=== PATIENT | female | born 1990 | race Hispanic/Latino ===

== ENCOUNTER 2018-05-06 22:20 | Emergency (ER) | payer SELFPAY ==
[~2018-05-06] VITALS: Ht 157.5 cm; Wt 154.2 kg
== END 2018-05-07 00:51 | disposition home or self-care (01) ==
LOC: ER 22:20
DX: R10.2 Pelvic and perineal pain (principal); N89.8 Other specified noninflammatory disorders of vagina
CPT/HCPCS: 99283

== ENCOUNTER 2024-10-25 19:22 | Inpatient (IN) | payer SELFPAY ==
[~2024-10-25] VITALS: Ht 157.5 cm; Wt 142.9 kg
[~2024-10-25 19:22] MED LIST: DOXYCYCLINE HY100 MG PO
[2024-10-25] MEDS ORDERED: IOPAMIDOL 370 MG/ML 100 ML INFUS..BTL INJ ONE (20:43)
[2024-10-25] MEDS: ONDANSETRON HCL INJ 2MG/ML 2ML 2 MG/ML VIAL IV STA (20:53)
[2024-10-25] MEDS: SODIUM CHLORIDE 0.9% 1000ML 1,000 ML IV ONE (20:53)
[2024-10-25] MEDS: FAMOTIDINE 20 MG/2 ML VIAL IV STA (20:53)
[2024-10-25] MEDS: KETOROLAC TROMETHAMINE 30 MG/ML VIAL IV STA (21:34)
[2024-10-26] VITALS (11 sets, daily range): BP systolic 117–159; BP diastolic 56–95; PULSE 50–81; RESP 18–20; TEMP 98.5–99.1; O2SAT 98–100
[2024-10-26] MEDS ORDERED: HYDROMORPHONE 1MG/1ML INJ IV PRN (00:45)
[2024-10-26] MEDS: SODIUM CHLORIDE 0.9% 1000ML 1,000 ML IV SCH (01:22)
[2024-10-26 08:15] LABS: BASOPHILS % 0.3 % (0.0-1.0); EOSINOPHILS # (AUTO) 0.2 (0.0-0.4); EOSINOPHILS % 2.3 % (0.0-6.0); HEMATOCRIT 38.4 % (34.2-44.1); HEMOGLOBIN 12.5 g/dL (12.0-16.0); LYMPHOCYTES # (AUTO) 2.2 (1.0-3.2); LYMPHOCYTES % 33.6 % (18.0-39.1); MEAN CORPUSCULAR HEMOGLOBIN 30.9 pg (28-32); MEAN CORPUSCULAR HGB CONC 32.6 g/dL (31-35); MONOCYTES # (AUTO) 0.6 (0.2-0.8); MONOCYTES % 9.2 % (4.4-11.3); NEUTROPHILS # (AUTO) 3.6 (2.1-6.9); NEUTROPHILS % 54.4 % (38.7-80.0); PLATELET COUNT 141 x10e3/uL (140-360); RED BLOOD COUNT 4.04 x10e6/uL (3.6-5.1); RED CELL DISTRIBUTION WIDTH 12.8 % (11.7-14.4); WHITE BLOOD COUNT 6.63 x10e3/uL (4.8-10.8)
[2024-10-26 08:31] LABS: ALBUMIN 3.5 g/dL (3.5-5.0); ALBUMIN/GLOBULIN RATIO 1.3 (0.8-2.0); ANION GAP 12.8 mmol/L (8-16); BILIRUBIN,TOTAL 0.9 mg/dL (0.2-1.2); CALCIUM 8.9 mg/dL (8.4-10.2); CREATININE, SERUM 0.8 mg/dL (0.57-1.11); POTASSIUM 3.8 mmol/L (3.5-5.1); TOTAL PROTEIN 6.3 g/dL (6.5-8.1)
[2024-10-26 08:34] LABS: INR 1.05; PROTHROMBIN TIME 14.3 seconds (11.9-14.5)
[2024-10-26 08:35] LABS: PARTIAL THROMBOPLASTIN TIME 32.6 seconds (23.8-35.5)
[2024-10-26] MEDS ORDERED: LIDOCAINE HCL 2% LOCAL INJ 5 ML SDV VIAL INJ ONE (16:23)
[2024-10-26] MEDS ORDERED: FENTANYL CITRATE/PF 100MCG/2 ML INJ ONE (16:23)
[2024-10-26] MEDS ORDERED: MIDAZOLAM HCL 2 MG/2 ML VIAL ONE (16:23)
[2024-10-26] MEDS ORDERED: ROCURONIUM BROMIDE 1 ML IV ONE (16:26)
[2024-10-26] MEDS ORDERED: SUGAMMADEX SODIUM 200 MG/2 ML VIAL IV ONE (16:26)
[2024-10-26] MEDS ORDERED: PROPOFOL IV EMULSION 10 MG/ML 20 ML VIAL ONE ×2 (16:26→16:56)
[2024-10-26] MEDS ORDERED: DEXAMETHASONE SOD PHOS INJ 4 MG/ML SDV ONE (16:58)
[2024-10-26] MEDS ORDERED: ONDANSETRON HCL INJ 2MG/ML 2ML 2 MG/ML VIAL ONE (16:59)
[2024-10-26] MEDS ORDERED: KETOROLAC TROMETHAMINE 30 MG/ML VIAL ONE (16:59)
[2024-10-26] MEDS ORDERED: ACETAMINOPHEN 1000 MG/100 ML 100 ML IV ONE (17:00)
[2024-10-26] MEDS ORDERED: SEVOFLURANE INHAL SOLN 250 ML PEN BTL ONE (17:12)
[2024-10-26] MEDS ORDERED: ONDANSETRON HCL INJ 2MG/ML 2ML 2 MG/ML VIAL IV PRN (18:15)
[2024-10-26] MEDS: FENTANYL CITRATE/PF 100MCG/2 ML INJ ONE (18:19)
[2024-10-26] MEDS: ONDANSETRON HCL INJ 2MG/ML 2ML 2 MG/ML VIAL IV PRN (20:20)
[2024-10-26] MEDS: HYDROMORPHONE 1MG/1ML INJ IV PRN (20:23)
[2024-10-26] MEDS: KETOROLAC TROMETHAMINE 30 MG/ML VIAL IV PRN (22:16)
[2024-10-27 00:12] VITALS: BP 148/73; PULSE 61; RESP 18; TEMP 97.6; O2SAT 99
[2024-10-27 04:00] VITALS: BP 149/98; PULSE 69; RESP 18; TEMP 98.2; O2SAT 100
[2024-10-27 05:39] LABS: BASOPHILS % 0.2 % (0.0-1.0); HEMATOCRIT 39.3 % (34.2-44.1); HEMOGLOBIN 13.4 g/dL (12.0-16.0); LYMPHOCYTES # (AUTO) 1.1 (1.0-3.2); LYMPHOCYTES % 13.4 % (18.0-39.1); MEAN CORPUSCULAR HEMOGLOBIN 30.5 pg (28-32); MEAN CORPUSCULAR HGB CONC 34.1 g/dL (31-35); MEAN CORPUSCULAR VOLUME 89.3 fL (81-99); MONOCYTES # (AUTO) 0.2 (0.2-0.8); MONOCYTES % 2.4 % (4.4-11.3); NEUTROPHILS % 83.6 % (38.7-80.0); PLATELET COUNT 167 x10e3/uL (140-360); RED CELL DISTRIBUTION WIDTH 12.5 % (11.7-14.4); WHITE BLOOD COUNT 8.38 x10e3/uL (4.8-10.8)
[2024-10-27] MEDS: HYDROCODONE/APAP 7.5MG-325MG 1 EA TAB PO PRN (05:58)
[2024-10-27 05:59] LABS: ALBUMIN 3.9 g/dL (3.5-5.0); ALBUMIN/GLOBULIN RATIO 1.3 (0.8-2.0); ANION GAP 13.4 mmol/L (8-16); BILIRUBIN,TOTAL 0.7 mg/dL (0.2-1.2); CALCIUM 9.1 mg/dL (8.4-10.2); CREATININE, SERUM 0.75 mg/dL (0.57-1.11); MAGNESIUM 1.9 MG/DL (1.3-2.1); POTASSIUM 4.4 mmol/L (3.5-5.1)
[2024-10-27 07:46] VITALS: BP 145/88; PULSE 53; RESP 21; TEMP 97.9; O2SAT 100
[2024-10-27 08:22] VITALS: BP 145/88; PULSE 53; RESP 21; TEMP 97.9; O2SAT 100
[2024-10-27] MEDS: SIMETHICONE 80 MG CHEW PO PRN (10:49)
[2024-10-27 11:10] VITALS: BP 154/90; PULSE 82; RESP 17; TEMP 97.4; O2SAT 100
[2024-10-27 16:03] VITALS: BP 145/86; PULSE 64; RESP 16; TEMP 97.9; O2SAT 100
== END 2024-10-27 18:07 | disposition home or self-care (01) | DRG 418 ==
LOC: FSED 19:38 → ERHOLD 10-26 00:42 → MED/SURG2 10-26 01:14 → OBSVTOIN 10-26 12:31
PROVIDERS: ADMIT Internal Medicine; ATTEND Internal Medicine
PROC: 0FT44ZZ Resection of Gallbladder, Percutaneous Endoscopic Approach (ICD-10-PCS; principal; 2024-10-26 16:47)
DX: K80.00 Calculus of gallbladder with acute cholecystitis without obstruction (principal); Z68.43 Body mass index [BMI] 50.0-59.9, adult; E66.01 Morbid (severe) obesity due to excess calories; Z59.6 Low income
CPT/HCPCS: 36415; 71046; 74177; 76705; 80048; 80053; 80076; 81003; 81025; 82553; 83735; 84484; 85025; 85610; 85730; 88304; 99284; C1766; J1100; J1171; J1885; J2003; J2250; J2405; J2470; J2543; J7030; Q9967